=== PATIENT | female | born 1945 | race Caucasian/White ===

== ENCOUNTER 2018-05-12 12:46 | Outpatient (CLI) | payer MEDICARE, OTHER | END 2018-05-12 12:47 | disposition home or self-care (01) | LOC: BICMAMMO 12:46 | PROVIDERS: ATTEND Family Medicine | DX: Z12.31 Encounter for screening mammogram for malignant neoplasm of breast (principal) | CPT/HCPCS: 77063; 77067 ==

== ENCOUNTER 2018-06-02 12:35 | Outpatient (CLI) | payer MEDICARE, OTHER ==
--- NOTE | 2018-06-02 13:45 | BD ---
BONE DENSITOMETRY USING DEXA: HISTORY: Postmenopausal screening for osteoporosis. FINDINGS: Lumbar Spine: BMD (g/cm2) L1 1.020 T-Score: 0.3 Z-Score: 2.4 L2 1.093 T-Score: 0.6 Z-Score: 3.0 L3 1.183 T-Score: 0.9 Z-Score: 3.4 L4 1.243 T-Score: 1.7 Z-Score: 4.2 L1-L4 1.135 T-Score: 0.8 Z-Score: 3.2 Femoral Neck: 0.662 T-Score: -1.7 Z-Score: 0.4 Total Femur: 0.780 T-Score: -1.3 Z-Score: 0.5 The 10-year fracture risk for a major osteoporotic fracture is 11% and for a hip fracture is 2.4%. Impression: Osteopenia. POS: C
== END 2018-06-02 12:36 | disposition home or self-care (01) ==
LOC: BICMAMMO 12:35
PROVIDERS: ATTEND Family Medicine
DX: N95.9 Unspecified menopausal and perimenopausal disorder (principal); M85.859 Other specified disorders of bone density and structure, unspecified thigh
CPT/HCPCS: 77080

== ENCOUNTER 2019-11-04 13:12 | Outpatient (CLI) | payer MEDICARE, OTHER ==
--- NOTE | 2019-11-04 15:03 | MMO ---
Bilateral MAMMO Bilat Screen [facility]. CLINICAL HISTORY: Patient is 74 years old and is seen for screening. The patient has no family history of breast cancer. The patient has no personal history of cancer. The patient has a history of left Stereotatic Biopsy in April, - benign. VIEWS: The views performed were: bilateral craniocaudal with tomosynthesis and bilateral mediolateral oblique with tomosynthesis. FILMS COMPARED: The present examination has been compared to prior imaging studies performed at [facility] on 06/21/2014, 08/01/2015, 09/30/2016 and 05/12/2018. This study has been interpreted with the assistance of computer-aided detection. MAMMOGRAM FINDINGS: There are scattered fibroglandular densities. Finding 1: There are stable benign appearing calcifications seen in both breasts. Finding 2: There is a stable area of architectural distortion, a stable post-surgical scar and a stable biopsy clip seen in the upper-outer region of the left breast. Finding 3: There are stable focal asymmetries seen in both breasts. There are no suspicious masses, suspicious calcifications, or new areas of architectural distortion. IMPRESSION: THERE IS NO MAMMOGRAPHIC EVIDENCE OF MALIGNANCY. A ROUTINE FOLLOW-UP MAMMOGRAM IN 1 YEAR IS RECOMMENDED. THE RESULTS OF THIS EXAM WERE SENT TO THE PATIENT. ACR BI-RADS Category 2 - Benign finding MAMMOGRAPHY NOTE: 1. A negative mammogram report should not delay a biopsy if a dominant of clinically suspicious mass is present. 2. Approximately 10% to 15% of breast cancers are not detected by mammography. 3. Adenosis and dense breasts may obscure an underlying neoplasm. Reported by: NATALYA CHILDS MD Electonically Signed: [id number]
== END 2019-11-04 13:13 | disposition home or self-care (01) ==
LOC: BICMAMMO 13:12
PROVIDERS: ATTEND Family Medicine
DX: Z12.31 Encounter for screening mammogram for malignant neoplasm of breast (principal); Z91.89 Other specified personal risk factors, not elsewhere classified
CPT/HCPCS: 77063; 77067

== ENCOUNTER 2021-02-12 09:11 | Inpatient (IN) | payer MEDICARE, OTHER ==
[~2021-02-12 09:11] MED LIST: Iopamidol 370 76% 100 ML VIAL ONE
[2021-02-12] MEDS ORDERED: Lidocaine 1% (PF) 30 ML VIAL ONE (09:25)
[2021-02-12 09:35] LABS: #Basophils 0.1 thou/uL (0.0-0.2); #Eosinphils 0.1 thou/uL (0.0-0.7); #Lymphocytes 3.8 thou/uL (1.20-3.40); #Monocytes 0.7 thou/uL (0.11-0.59); #Neutrophils 3.3 thou/uL (1.40-6.50); %Basophils 1.1 % (0.0-1.0); %Eosinophils 0.9 % (0.0-10.0); %Lymphocytes 47.9 % (21.0-51.0); %Monocytes 8.6 % (0.0-10.0); %Neutrophils 41.5 % (42.0-75.0); Hemoglobin 15.2 g/dL (12.0-16.0); Mean Corpuscular HGB CONC 35.4 g/dL (32.0-36.0); Mean Corpuscular Hemoglobin 33.9 pg (27.0-31.0); Mean Corpuscular Volume 95.8 fL (78.0-98.0); Mean Platelet Volume 7.5 fL (7.4-10.4); Platelet Count 244 thou/uL (130-400); Red Blood Cell (RBC) Count 4.47 mill/uL (4.20-5.40); White Blood Cell (WBC) Count 7.9 thou/uL (4.8-10.8)
[2021-02-12] MEDS ORDERED: Heparin 10,000 UNITS/ 10 ML VIAL ONE (09:37)
[2021-02-12] MEDS ORDERED: Midazolam HCl 2 mg/2 ml Vial ONE (09:40)
[2021-02-12] MEDS ORDERED: Atropine Sulfate 1 mg/10 ml Syringe ONE (09:44)
[2021-02-12] MEDS ORDERED: Ondansetron PF 4 MG/2 ML Vial ONE (09:44)
[2021-02-12 09:54] LABS: ALT (SGPT) 19 U/L (8-55); AST (SGOT) 21 U/L (5-34); Alkaline Phosphatase 73 U/L (40-110); Anion Gap 14 mmol/L (10-20); BUN (Urea Nitrogen) 16 mg/dL (9.8-20.1); Bilirubin, Total 0.6 mg/dL (0.2-1.2); Calc. Creatinine Clearance 0 mL/min (70-130); Calcium 9.8 mg/dL (7.8-10.44); Carbon Dioxide 28 mmol/L (23-31); Chloride 104 mmol/L (98-107); Globulin 2.7 g/dL (2.4-3.5); Glucose 113 mg/dL (83-110); Potassium 3.7 mmol/L (3.5-5.1); Protein, Total 6.7 g/dL (5.8-8.1); Sodium 142 mmol/L (136-145)
[2021-02-12] MEDS ORDERED: Fentanyl 100 MCG/2 ML VIAL ONE (09:54)
[2021-02-12] MEDS ORDERED: Nitroglycerin 100MG/250ML BOT 250 ML ONE (10:07)
[2021-02-12] MEDS ORDERED: TICAGRELOR 90 MG TABLET ONE (10:31)
[2021-02-12] MEDS ORDERED: ceFAZolin 2 GM/DEX 5% 100 ML BAG ONE (11:49)
[2021-02-12] MEDS ORDERED: TICAGRELOR 90 MG TABLET PO SCH (12:00)
[2021-02-12] MEDS: Sodium Chloride 0.9% 1,000 ML IV SCH ×2 (12:17→16:00)
[2021-02-12 12:59] LABS: SARS-CoV-2 NAA Rapid Test Not Detected (NotDetected)
[2021-02-12 16:45] LABS: Troponin I 286.199 ng/mL (< 0.028)
[2021-02-12] MEDS ORDERED: Sodium Chloride 0.9% 10 ML ONE (20:14)
[2021-02-12] MEDS: Atorvastatin Calcium 40 MG TAB PO SCH (20:15)
[2021-02-12] MEDS: TICAGRELOR 90 MG TABLET PO SCH (20:16)
[2021-02-12 22:01] LABS: Critical Call Chem Troponin I RESULT DECREASING; Troponin I 251.849 ng/mL (< 0.028)
[2021-02-13] MEDS: Sodium Chloride 0.9% 1,000 ML IV SCH (02:15)
[2021-02-13 05:01] LABS: #Basophils 0.1 thou/uL (0.0-0.2); #Eosinphils 0.1 thou/uL (0.0-0.7); #Lymphocytes 0.8 thou/uL (1.20-3.40); #Monocytes 0.7 thou/uL (0.11-0.59); #Neutrophils 7.2 thou/uL (1.40-6.50); %Basophils 1.7 % (0.0-1.0); %Eosinophils 0.8 % (0.0-10.0); %Lymphocytes 9.4 % (21.0-51.0); %Neutrophils 80.2 % (42.0-75.0); Hemoglobin 13.7 g/dL (12.0-16.0); Mean Corpuscular HGB CONC 35.2 g/dL (32.0-36.0); Mean Corpuscular Hemoglobin 33.3 pg (27.0-31.0); Mean Corpuscular Volume 94.5 fL (78.0-98.0); Mean Platelet Volume 7.9 fL (7.4-10.4); Platelet Count 190 thou/uL (130-400); RBC Distribution Width 11.1 % (11.5-14.5); White Blood Cell (WBC) Count 8.9 thou/uL (4.8-10.8)
[2021-02-13 05:31] LABS: ALT (SGPT) 53 U/L (8-55); AST (SGOT) 327 U/L (5-34); Albumin 3.4 g/dL (3.4-4.8); Alkaline Phosphatase 62 U/L (40-110); Anion Gap 14 mmol/L (10-20); BUN (Urea Nitrogen) 14 mg/dL (9.8-20.1); Bilirubin, Total 1.2 mg/dL (0.2-1.2); Calc. Creatinine Clearance 0 mL/min (70-130); Calcium 8.3 mg/dL (7.8-10.44); Carbon Dioxide 22 mmol/L (23-31); Chloride 108 mmol/L (98-107); Globulin 2.1 g/dL (2.4-3.5); Glucose 113 mg/dL (83-110); Protein, Total 5.5 g/dL (5.8-8.1); Sodium 140 mmol/L (136-145)
[2021-02-13 05:55] LABS: Critical Call Chem Troponin I RESULT DECREASING
[2021-02-13] MEDS: Lisinopril 2.5 MG TAB PO SCH (09:29)
[2021-02-13] MEDS: TICAGRELOR 90 MG TABLET PO SCH ×2 (09:29→21:42)
[2021-02-13] MEDS: Aspirin Chewable 81 MG TAB PO SCH (09:30)
[2021-02-13] MEDS ORDERED: FLU VACC QS2021-22(65YR UP)/PF 240 MCG/0.7 ML SYRINGE IM ONE (12:00)
[2021-02-14] MEDS: TICAGRELOR 90 MG TABLET PO SCH ×2 (09:21→20:45)
[2021-02-14] MEDS: Aspirin Chewable 81 MG TAB PO SCH ×2 (09:21→09:23)
[2021-02-14] MEDS: Lisinopril 2.5 MG TAB PO SCH (09:21)
[2021-02-14] MEDS ORDERED: Diphenoxylate HCl/Atropine Tablet PO SCH (10:15)
[2021-02-14] MEDS ORDERED: Rocuronium Bromide 10 MG/ML (10ML VIAL) ONE (11:58)
[2021-02-14] MEDS ORDERED: Magnesium 5 GM/10 ML Abboject SYRINGE ONE (11:58)
[2021-02-14 12:37] LABS: Actual Bicarbonate (HCO3a) 18.6 mEq/L (22-28); Base Excess (BEa) -4.6 mEq/L (-2.0 to +3.0); CO2 Tension 29.3 mmHg (35.0-45.0); Calcium, Ionized (arterial) 1.16 mmol/L (1.12-1.30); Carboxyhemoglobin (COHb) 0.3 gm% (0.0-3.0); Hemoglobin (Hb) 13.5 g/dL (12.0-16.0); O2 Tension (PaO2), arterial 475.4 mmHg (> 70.0); pH, Arterial 7.42 (7.35-7.45)
[2021-02-14 12:40] LABS: Puncture Site RBA
[2021-02-14 12:41] LABS: ALV-art Gradient 200.975 mmHg (0-20)
[2021-02-14] MEDS ORDERED: Potassium Chloride 20 MEQ TAB PO SCH ×2 (13:00→21:00)
[2021-02-14] MEDS ORDERED: Aspirin 81 mg Enteric Coated Tablet PO SCH (13:00)
[2021-02-14] MEDS: Sodium Chloride 0.9% 1,000 ML IV SCH (13:31)
[2021-02-14] MEDS ORDERED: Fentanyl CADD 100 ML ONE (13:35)
[2021-02-14 13:48] LABS: Anion Gap 13 mmol/L (10-20); BUN (Urea Nitrogen) 15 mg/dL (9.8-20.1); Calc. Creatinine Clearance 56 mL/min (70-130); Calcium 8.6 mg/dL (7.8-10.44); Carbon Dioxide 20 mmol/L (23-31); Chloride 111 mmol/L (98-107); Glucose 162 mg/dL (83-110); Magnesium 3.1 mg/dL (1.6-2.6); Potassium 3.4 mmol/L (3.5-5.1); Sodium 141 mmol/L (136-145)
[2021-02-14 14:21] LABS: Troponin I 57.443 ng/mL (< 0.028)
[2021-02-14] MEDS: Atorvastatin Calcium 40 MG TAB PO SCH (20:44)
[2021-02-15] MEDS: Sodium Chloride 0.9% 1,000 ML IV SCH (02:44)
[2021-02-15 04:04] LABS: Anion Gap 13 mmol/L (10-20); BUN (Urea Nitrogen) 12 mg/dL (9.8-20.1); Calc. Creatinine Clearance 59 mL/min (70-130); Calcium 8.4 mg/dL (7.8-10.44); Carbon Dioxide 21 mmol/L (23-31); Chloride 111 mmol/L (98-107); Glucose 108 mg/dL (83-110); Magnesium 2.3 mg/dL (1.6-2.6); Phosphorus 2.3 mg/dL (2.3-4.7); Potassium 4.4 mmol/L (3.5-5.1); Sodium 141 mmol/L (136-145)
[2021-02-15 05:08] LABS: #Lymphocytes 1.2 thou/uL (1.20-3.40); #Monocytes 0.8 thou/uL (0.11-0.59); #Neutrophils 6.8 thou/uL (1.40-6.50); %Eosinophils 0.3 % (0.0-10.0); %Lymphocytes 13.5 % (21.0-51.0); %Monocytes 9.1 % (0.0-10.0); Hemoglobin 13.2 g/dL (12.0-16.0); Mean Corpuscular HGB CONC 33.9 g/dL (32.0-36.0); Mean Corpuscular Hemoglobin 32.4 pg (27.0-31.0); Mean Corpuscular Volume 95.7 fL (78.0-98.0); Mean Platelet Volume 8.8 fL (7.4-10.4); Platelet Count 174 thou/uL (130-400); RBC Distribution Width 11.1 % (11.5-14.5); Red Blood Cell (RBC) Count 4.06 mill/uL (4.20-5.40); White Blood Cell (WBC) Count 8.9 thou/uL (4.8-10.8)
[2021-02-15] MEDS: Aspirin Chewable 81 MG TAB PO SCH (08:17)
[2021-02-15] MEDS: Lisinopril 2.5 MG TAB PO SCH (08:17)
[2021-02-15] MEDS: TICAGRELOR 90 MG TABLET PO SCH ×2 (08:18→20:48)
[2021-02-15] MEDS: Diphenoxylate HCl/Atropine Tablet PO PRN ×3 (09:43→21:45)
[2021-02-15] MEDS: Atorvastatin Calcium 40 MG TAB PO SCH (20:48)
[2021-02-16] MEDS ORDERED: Fentanyl 100 MCG/2 ML VIAL ONE (11:49)
[2021-02-16] MEDS: Aspirin Chewable 81 MG TAB PO SCH (11:53)
[2021-02-16] MEDS: Lisinopril 2.5 MG TAB PO SCH (11:53)
[2021-02-16] MEDS: TICAGRELOR 90 MG TABLET PO SCH ×2 (11:53→20:02)
[2021-02-16] MEDS ORDERED: Propofol 1,000 MG/100 ML VIAL IV ONE (12:45)
[2021-02-16] MEDS ORDERED: CEFAZOLIN 1 GM VIAL ONE (12:51)
[2021-02-16] MEDS ORDERED: Gentamicin 80 MG/2 ML VIAL ONE (12:51)
[2021-02-16] MEDS ORDERED: Lidocaine 1% (PF) 30 ML VIAL ONE (13:09)
[2021-02-16] MEDS ORDERED: PHENYLEPHRINE-NS 100 MCG/ML 10 ML SYRINGE ONE (13:10)
[2021-02-16] MEDS ORDERED: ePHEDrine 50 MG/ML VIAL ONE (13:10)
[2021-02-16] MEDS: Amiodarone 200 MG TAB PO SCH ×2 (16:15→20:02)
[2021-02-16] MEDS: Atorvastatin Calcium 40 MG TAB PO SCH (20:02)
[2021-02-17] MEDS: Lisinopril 2.5 MG TAB PO SCH (09:02)
[2021-02-17] MEDS: Amiodarone 200 MG TAB PO SCH ×3 (09:02→20:29)
[2021-02-17] MEDS: Aspirin Chewable 81 MG TAB PO SCH (09:02)
[2021-02-17] MEDS: TICAGRELOR 90 MG TABLET PO SCH ×2 (09:02→20:30)
[2021-02-17] MEDS: Diphenoxylate HCl/Atropine Tablet PO PRN ×3 (09:02→20:30)
[2021-02-17] MEDS: Atorvastatin Calcium 40 MG TAB PO SCH (20:30)
[2021-02-18] MEDS: Aspirin Chewable 81 MG TAB PO SCH (09:51)
[2021-02-18] MEDS: Amiodarone 200 MG TAB PO SCH ×3 (09:51→20:46)
[2021-02-18] MEDS: TICAGRELOR 90 MG TABLET PO SCH ×2 (09:52→20:49)
[2021-02-18] MEDS: Lisinopril 2.5 MG TAB PO SCH (10:22)
[2021-02-18] MEDS: Atorvastatin Calcium 40 MG TAB PO SCH (20:46)
[2021-02-18] MEDS: Diphenoxylate HCl/Atropine Tablet PO PRN (20:46)
[2021-02-19 06:56] VITALS: BMI 22.9
[2021-02-19] MEDS ORDERED: Carvedilol 3.125 MG TAB PO SCH (08:00)
[2021-02-19] MEDS: TICAGRELOR 90 MG TABLET PO SCH (08:17)
[2021-02-19] MEDS: Amiodarone 200 MG TAB PO SCH (08:18)
[2021-02-19] MEDS: Aspirin Chewable 81 MG TAB PO SCH (08:18)
[2021-02-19 08:20] VITALS: BP 107/67
[2021-02-19] MEDS: Diphenoxylate HCl/Atropine Tablet PO PRN (08:29)
[2021-02-19] MEDS ORDERED: Lisinopril 5 MG TAB PO SCH (09:00)
[2021-02-19 09:15] LABS: #Eosinphils 0.1 thou/uL (0.0-0.7); #Lymphocytes 0.9 thou/uL (1.20-3.40); #Monocytes 0.6 thou/uL (0.11-0.59); #Neutrophils 4.8 thou/uL (1.40-6.50); %Basophils 0.2 % (0.0-1.0); %Eosinophils 0.9 % (0.0-10.0); %Lymphocytes 13.6 % (21.0-51.0); %Monocytes 9.8 % (0.0-10.0); %Neutrophils 75.5 % (42.0-75.0); Hemoglobin 11.7 g/dL (12.0-16.0); Mean Corpuscular HGB CONC 34.7 g/dL (32.0-36.0); Mean Corpuscular Volume 92.2 fL (78.0-98.0); Mean Platelet Volume 8.7 fL (7.4-10.4); Platelet Count 226 thou/uL (130-400); Red Blood Cell (RBC) Count 3.65 mill/uL (4.20-5.40); White Blood Cell (WBC) Count 6.3 thou/uL (4.8-10.8)
[2021-02-19 09:38] LABS: Anion Gap 11 mmol/L (10-20); BUN (Urea Nitrogen) 16 mg/dL (9.8-20.1); Calc. Creatinine Clearance 57 mL/min (70-130); Calcium 8.8 mg/dL (7.8-10.44); Carbon Dioxide 25 mmol/L (23-31); Chloride 105 mmol/L (98-107); Glucose 130 mg/dL (83-110); Potassium 3.4 mmol/L (3.5-5.1); Sodium 138 mmol/L (136-145)
[2021-02-19] MEDS ORDERED: Potassium Chloride 20 MEQ TAB PO SCH (10:00)
[2021-02-19 12:24] VITALS: TEMP 98
[2021-02-19] MEDS ORDERED: Amiodarone 200 MG TAB PO SCH (15:00)
[2021-02-20] MEDS ORDERED: Potassium Chloride 20 MEQ TAB PO SCH (08:00)
== END 2021-02-19 14:45 | disposition home or self-care (01) | DRG 222 ==
LOC: ERS 09:11 → CCU 09:36 → 2NO 02-13 09:01 → CCU 02-14 12:15 → IMCU/EMU 02-15 16:35
PROVIDERS: ADMIT Internal Medicine Cardiovascular Disease; ATTEND Internal Medicine Cardiovascular Disease
PROC: 027036Z Dilation of Coronary Artery, One Artery with Three Drug-eluting Intraluminal Devices, Percutaneous Approach (ICD-10-PCS; principal; 2021-02-12)
PROC: 02703ZZ Dilation of Coronary Artery, One Artery, Percutaneous Approach (ICD-10-PCS; 2021-02-12)
PROC: 4A023N7 Measurement of Cardiac Sampling and Pressure, Left Heart, Percutaneous Approach (ICD-10-PCS; 2021-02-12)
PROC: B2151ZZ Fluoroscopy of Left Heart using Low Osmolar Contrast (ICD-10-PCS; 2021-02-12)
PROC: B2111ZZ Fluoroscopy of Multiple Coronary Arteries using Low Osmolar Contrast (ICD-10-PCS; 2021-02-12)
PROC: 0BH17EZ Insertion of Endotracheal Airway into Trachea, Via Natural or Artificial Opening (ICD-10-PCS; 2021-02-14)
PROC: 5A2204Z Restoration of Cardiac Rhythm, Single (ICD-10-PCS; 2021-02-14)
PROC: 5A1935Z Respiratory Ventilation, Less than 24 Consecutive Hours (ICD-10-PCS; 2021-02-14)
PROC: 0JH608Z Insertion of Defibrillator Generator into Chest Subcutaneous Tissue and Fascia, Open Approach (ICD-10-PCS; 2021-02-16)
PROC: 02HK0KZ Insertion of Defibrillator Lead into Right Ventricle, Open Approach (ICD-10-PCS; 2021-02-16)
PROC: 02H60KZ Insertion of Defibrillator Lead into Right Atrium, Open Approach (ICD-10-PCS; 2021-02-16)
DX: I21.19 ST elevation (STEMI) myocardial infarction involving other coronary artery of inferior wall (principal); I46.2 Cardiac arrest due to underlying cardiac condition; I47.2 Ventricular tachycardia; Z20.822 Contact with and (suspected) exposure to COVID-19; R00.1 Bradycardia, unspecified; E78.5 Hyperlipidemia, unspecified; E78.00 Pure hypercholesterolemia, unspecified; K52.9 Noninfective gastroenteritis and colitis, unspecified; I34.0 Nonrheumatic mitral (valve) insufficiency; I25.5 Ischemic cardiomyopathy; I25.10 Atherosclerotic heart disease of native coronary artery without angina pectoris; E87.6 Hypokalemia; J02.9 Acute pharyngitis, unspecified; Z90.49 Acquired absence of other specified parts of digestive tract; Z98.49 Cataract extraction status, unspecified eye
CPT/HCPCS: 33249; 36415; 36600; 71045; 76942; 80048; 80053; 82805; 83735; 84100; 84484; 85025; 85347; 92928; 93005; 93010; 93306; 93798; 94002; 96374; 97139; 99152; 99153; C1721; C1769; C1777; C1874; C1898; C9600; J0461; J0690; J1580; J1644; J2001; J2250; J2405; J2704; J3010; J3475; J3490; J7050; Q9967; U0002

== ENCOUNTER 2022-02-21 10:32 | Outpatient (CLI) | payer MEDICARE, OTHER | END 2022-02-21 10:33 | disposition home or self-care (01) | LOC: BICMAMMO 10:32 | PROVIDERS: ATTEND Family Medicine | DX: Z12.31 Encounter for screening mammogram for malignant neoplasm of breast (principal); M85.851 Other specified disorders of bone density and structure, right thigh; M85.852 Other specified disorders of bone density and structure, left thigh; Z78.0 Asymptomatic menopausal state; Z91.89 Other specified personal risk factors, not elsewhere classified | CPT/HCPCS: 77063; 77067; 77080 ==

== ENCOUNTER 2024-04-05 14:15 | Outpatient (CLI) | payer MEDICARE, OTHER | END 2024-04-05 14:16 | disposition home or self-care (01) | LOC: BICMAMMO 14:15 | PROVIDERS: ATTEND Family Medicine | DX: Z12.31 Encounter for screening mammogram for malignant neoplasm of breast (principal); M85.851 Other specified disorders of bone density and structure, right thigh; M85.852 Other specified disorders of bone density and structure, left thigh; Z78.0 Asymptomatic menopausal state; Z91.89 Other specified personal risk factors, not elsewhere classified | CPT/HCPCS: 77063; 77067; 77080 ==